=== PATIENT | male | born 1940 | race Caucasian/White ===

== ENCOUNTER → 2018-12-19 | Outpatient (CLI) | payer MEDICARE, BC ==
--- NOTE | 2018-12-19 13:20 | CT ---
EXAMINATION TYPE: CT brain wo con DATE OF EXAM: 12/19/2018 COMPARISON: None HISTORY: Frontal head injury 2 months ago. Follow up scan. CT DLP: 1059.7 mGycm Automated exposure control for dose reduction was used. CT brain departmental protocol. FINDINGS: There is no hemorrhage or hydrocephalus. Cortical atrophy is extensive. Cerebral vascular calcificati ons are present. Periventricular white matter shows low attenuation. Calvarium is intact. Extensive i nflammatory change includes the sphenoid sinus, ethmoid air cells, bilateral maxillary sinus and fron pilar sinus. Mastoids are well aerated. Possible mucus retention cyst or polyp within the left maxillar y sinus. No evident depressed skull fracture. 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 EXTENSIVE SINUS DISEASE. NO ACUTE ABN ORMALITIES EVIDENT.
== END | disposition home or self-care (01) ==
LOC: RADCTMAIN 12:40
PROVIDERS: ATTEND Internal Medicine
DX: G31.1 Senile degeneration of brain, not elsewhere classified (principal)
CPT/HCPCS: 70450

== ENCOUNTER → 2019-05-30 | Outpatient (CLI) | payer MEDICARE, BC ==
[2019-05-31 01:02] LABS: Protein, Total 6.3 g/dL (6.2-8.2)
[2019-05-31 10:32] LABS: Free Kappa Lt Chain Qnt, Serum 4.03 mg/dL (0.33-1.94)
[2019-05-31 12:40] LABS: Albumin 3.65 g/dL (3.80-4.90); Gamma Globulin 0.92 g/dL (0.70-1.50)
== END | disposition home or self-care (01) ==
LOC: LABWHC1 16:12
PROVIDERS: ATTEND Internal Medicine
DX: F03.90 Unspecified dementia, unspecified severity, without behavioral disturbance, psychotic disturbance, mood disturbance, and anxiety (principal); R60.9 Edema, unspecified
CPT/HCPCS: 36415; 83880; 83883; 84165; 84166; 84484

== ENCOUNTER 2019-09-08 18:06 | Emergency (ER) | payer MEDICARE, BC ==
[2019-09-08 18:17] VITALS: RESP 18; TEMP 98
--- NOTE | 2019-09-08 18:36 | ED ---
General Adult HPI - General Chief complaint: Fall Stated complaint: Fall Time Seen by Provider: 09/08/19 18:12 Source: EMS Mode of arrival: EMS Limitations: altered mental status - History of Present Illness Initial comments: 79-year-old male patient presents to the emergency department today for evaluation after stressing a fall. Patient resides at a [facility] facility. Staff states it was a witnessed fall from standing. Patient did not lose consciousness with the injury. They sent him in for evaluation of a possible injuries. Patient currently denies any pain. He is moving all extremities without difficulty. He denies any use of anticoagulants. Patient denies any headache, neck pain, back pain, chest pain, shortness of breath, dizziness, weakness, abdominal pain, nausea, vomiting, or difficulties with bowel movements or urination. - Related Data Home Medications Medication Instructions Recorded Confirmed Apixaban [Eliquis] 5 mg PO BID 04/01/16 04/10/16 Atorvastatin [Lipitor] 20 mg PO DAILY 04/01/16 04/10/16 Cyanocobalamin [Vitamin B-12] 2,500 mcg PO DAILY 04/01/16 04/10/16 Donepezil HCl [Aricept] 10 mg PO QAM 04/01/16 04/10/16 Glucosam/Jim-Msm1/C/Onesimo/Bosw 1 tab PO DAILY 04/01/16 04/10/16 [Glucosamine-Chondroitin Tablet] Multivitamins, Thera [Multivitamin] 1 tab PO DAILY 04/01/16 04/10/16 Sertraline HCl [Zoloft] 50 mg PO QAM 04/01/16 04/10/16 Previous Rx's Medication Instructions Recorded HYDROcodone/APAP 5-325MG [[place] 1 - 2 each PO Q4-6H PRN #90 tab 04/13/16 5-325] Sennosides-Docusate Sodium 1 tab PO BID #60 tablet 04/13/16 [Senokot-S] Allergies Allergy/AdvReac Type Severity Reaction Status Date / Time No Known Allergies Allergy Verified 04/01/16 08:35 Review of Systems ROS Statement: Those systems with pertinent positive or pertinent negative responses have been documented in the HPI. ROS Other: All systems not noted in ROS Statement are negative. Past Medical History Past Medical History: Atrial Fibrillation, Osteoarthritis (OA) Additional Past Medical History / Comment(s): states "mild cognitive impairment-memory impairment",cva 1996,hx bleeding ulcer History of Any Multi-Drug Resistant Organisms: None Reported Past Surgical History: Joint Replacement, Tonsillectomy Additional Past Surgical History / Comment(s): lt knee replaced Past Anesthesia/Blood Transfusion Reactions: No Reported Reaction Additional Past Anesthesia/Blood Transfusion Reaction / Comment(s): no hx blood transfusion Past Psychological History: Depression Smoking Status: Former smoker - Past Family History Mother Additional Family Medical History / Comment(s): Alheimer's Father Family Medical History: CVA/TIA, Myocardial Infarction ([place]) Brother(s) Additional Family Medical History / Comment(s): Parkinson's General Exam Limitations: altered mental status General appearance: alert, in no apparent distress, other (This is a well- developed, well-nourished is a well-developed, well-nourished adult male patient in no acute distress. Vital signs upon presentation are temperature 98.0F, pulse 76, respirations 18, blood pressure 135/91, pulse ox 100% on room air.) Eye exam: Present: normal appearance, PERRL, EOMI. Absent: scleral icterus, conjunctival injection, periorbital swelling ENT exam: Present: normal exam, normal oropharynx, mucous membranes moist Neck exam: Present: normal inspection, full ROM, other (Nontender, no step-off, no deformity to firm midline palpation of the posterior cervical spine. Full range of motion without pain or limitation.) Respiratory exam: Present: normal lung sounds bilaterally. Absent: respiratory distress, wheezes, rales, rhonchi, stridor Cardiovascular Exam: Present: regular rate, normal rhythm, normal heart sounds. Absent: systolic murmur, diastolic murmur, rubs, gallop, clicks GI/Abdominal exam: Present: soft, normal bowel sounds. Absent: distended, tenderness, guarding, rebound, rigid Extremities exam: Present: normal inspection, full ROM, normal capillary refill. Absent: tenderness, pedal edema, joint swelling, calf tenderness Back exam: Present: normal inspection, other (Nontender, no step-off, no deformity to firm midline palpation of the thoracic and lumbar vertebrae. Full range of motion without pain or limitation.). Absent: vertebral tenderness Neurological exam: Present: alert, CN II-XII intact. Absent: oriented X3 (Oriented 1) Psychiatric exam: Present: normal affect, normal mood Skin exam: Present: warm, dry, intact, normal color. Absent: rash Course Vital Signs 09/08/19 18:13 Temperature 98 F Pulse Rate 76 Respiratory 18 Rate Blood Pressure 135/91 O2 Sat by Pulse 100 Oximetry Medical Decision Making - Medical Decision Making 79-year-old male patient presents to the emergency department today for evaluation after splinting a fall. Physical examination is unremarkable. Patient does not appear to have any injuries. He denies any pain. He is moving all extremities and neck without any pain or limitation. is present, she also does not believe he has any injuries. He'll be discharged back to his facility. They're instructed to follow-up with the primary care physician for recheck in 1-2 days. Return parameters discussed in detail. verbalizes understanding and agrees with this plan. Disposition Clinical Impression: Fall Disposition: HOME SELF-CARE Condition: Good Instructions (If sedation given, give patient instructions): Fall Prevention for Older Adults (ED) Additional Instructions: Give Tylenol for any complaints of discomfort. Return to the emergency department immediately for any new, worsening, or concerning symptoms. The [facility] physician for recheck in 1-2 days. Is patient prescribed a controlled substance at d/c from ED?: No Referrals: Tim Gonzalez MD [Primary Care Provider] - 1-2 days Time of Disposition: 18:36
[2019-09-08 18:56] VITALS: BP 132/74; PULSE 71
== END 2019-09-08 18:54 | disposition home or self-care (01) ==
LOC: EC 18:06
DX: Z04.3 Encounter for examination and observation following other accident (principal); I48.91 Unspecified atrial fibrillation; F32.9 Major depressive disorder, single episode, unspecified; M19.90 Unspecified osteoarthritis, unspecified site; Z79.01 Long term (current) use of anticoagulants; Z79.899 Other long term (current) drug therapy; Z87.891 Personal history of nicotine dependence; Z96.652 Presence of left artificial knee joint; Z86.73 Personal history of transient ischemic attack (TIA), and cerebral infarction without residual deficits
CPT/HCPCS: 99283

== ENCOUNTER 2020-02-20 21:21 | Emergency (ER) | payer MEDICARE, BC ==
--- NOTE | 2020-02-20 21:38 | ED ---
General Adult HPI - General Chief complaint: Fall Stated complaint: Fall Time Seen by Provider: 02/20/20 21:26 Source: patient Mode of arrival: EMS Limitations: language barrier, physical limitation - History of Present Illness Initial comments: Dictation was produced using [employer] dictation software. please excuse any grammatical, word or spelling errors. This patient was cared for during a federal and state declared state of emergency secondary to Covid 19 Chief Complaint: 79-year-old male past medical history of A. fib on blood t adelina presents after fall. History of Present Illness: Chin is a 79-year-old male who presents today after fall. Patient is transferred from chair to wheelchair when he lost balance. Patient fell landing onto his left side. Patient complaining of left-sided shoulder pain. Family member at bedside reports that patient's complaint of left shoulder pain. Patient is a poor historian due to chronic dementia. Patient denies any shortness of breath. No abdominal pain. No lower extremity pain. The ROS documented in this emergency department record has been reviewed and confirmed by me. Those systems with pertinent positive or negative responses have been documented in the HPI. All other systems are other negative and/or noncontributory. PHYSICAL EXAM: General Impression: Alert and oriented x3/4, not in acute distress HEENT: Normocephalic atraumatic, extra-ocular movements intact, pupils equal and reactive to light bilaterally, mucous membranes moist. Cardiovascular: Heart regular rate and rhythm Chest: Able to complete full sentences, no retractions, no tachypnea Abdomen: abdomen soft, non-tender, non-distended, no organomegaly Musculoskeletal: Pulses present and equal in all extremities, no peripheral edema Extremities: No gross deformities. He does have some tenderness to palpation over the left scapular region. Motor: no focal deficits noted Neurological: CN II-XII grossly intact, no focal motor or sensory deficits noted Skin: Intact with no visualized rashes Psych: Normal affect and mood ED course: 79-year-old male presents after fall. Signs upon arrival are within acceptable limits. No obvious signs of trauma. Patient's fall is likely mechanical. Patient is debilitated and requires a lot of assistance. Family member at bedside reports that patient has chronic debility. CT of the head, C- spine and face are unremarkable. Shoulder x-ray left shoulder and chest x-ray and pelvis x-ray are unremarkable. Patient reevaluated bedside stable medical condition. Patient denies pain. Patient has frequent movement of his left upper extremity. Family member at bedside. Patient clear for discharge. Return parameters discussed with patient and family member who were both in agreement. - Related Data Home Medications Medication Instructions Recorded Confirmed Apixaban [Eliquis] 5 mg PO BID@0830,1930 04/01/16 02/20/20 Atorvastatin [Lipitor] 20 mg PO DAILY@192904/01/16 02/20/20 Donepezil HCl [Aricept] 10 mg PO DAILY@192904/01/16 02/20/20 Acetaminophen [Tylenol Arthritis] 650 mg PO Q4H PRN 02/20/20 02/20/20 Metoprolol Succinate (ER) [Toprol 25 mg PO DAILY@0800 02/20/20 02/20/20 Xl] QUEtiapine [SEROquel] 25 mg PO BID@0830,192902/20/20 02/20/20 Sertraline HCl [Zoloft] 100 mg PO DAILY@82902/20/20 02/20/20 Turmeric Curcumin 1 cap PO DAILY@0802/20/20 02/20/20 Allergies Allergy/AdvReac Type Severity Reaction Status Date / Time No Known Allergies Allergy Verified 02/20/20 21:33 Review of Systems ROS Statement: Those systems with pertinent positive or pertinent negative responses have been documented in the HPI. ROS Other: All systems not noted in ROS Statement are negative. Past Medical History Past Medical History: Atrial Fibrillation, Dementia, Osteoarthritis (OA) Additional Past Medical History / Comment(s): states "mild cognitive impairment-memory impairment",cva 1996,hx bleeding ulcer History of Any Multi-Drug Resistant Organisms: None Reported Past Surgical History: Joint Replacement, Tonsillectomy Additional Past Surgical History / Comment(s): lt knee replaced Past Anesthesia/Blood Transfusion Reactions: No Reported Reaction Additional Past Anesthesia/Blood Transfusion Reaction / Comment(s): no hx blood transfusion Past Psychological History: Depression Past Alcohol Use History: None Reported Past Drug Use History: None Reported - Past Family History Mother Additional Family Medical History / Comment(s): Alheimer's Father Family Medical History: CVA/TIA, Myocardial Infarction ([place]) Brother(s) Additional Family Medical History / Comment(s): Parkinson's General Exam Limitations: language barrier, physical limitation Course Vital Signs 02/20/20 21:22 Temperature 98.3 F Pulse Rate 80 Respiratory 16 Rate Blood Pressure 125/88 O2 Sat by Pulse 95 Oximetry Disposition Clinical Impression: Fall Disposition: HOME SELF-CARE Condition: Good Instructions (If sedation given, give patient instructions): Fall Prevention for Older Adults (ED) Is patient prescribed a controlled substance at d/c from ED?: No Referrals: Tim Gonzalez MD [Primary Care Provider] - 1-2 days Time of Disposition: 22:23
--- NOTE | 2020-02-20 22:07 | XR ---
EXAMINATION TYPE: XR pelvis AP view DATE OF EXAM: 02/20/2020 COMPARISON: None HISTORY: Fall, pain TECHNIQUE: Pelvis is examined in a single frontal projection FINDINGS: Femoral heads articulate with the acetabulum. Symphysis pubis and sacroiliac joints are nor mal. No acute fractures are evident. IMPRESSION: 1. No acute osseous abnormality pelvis
--- NOTE | 2020-02-20 22:07 | XR ---
EXAMINATION TYPE: XR chest 1V portable DATE OF EXAM: 02/20/2020 COMPARISON: 04/13/2016 INDICATION: Fall, pain TECHNIQUE: Single frontal view of the chest is obtained. FINDINGS: The heart size is normal. The pulmonary vasculature is normal. The lungs are clear. No pneumothorax is evident. No displaced rib fractures are evident. IMPRESSION: 1. No acute pulmonary process.
--- NOTE | 2020-02-20 22:09 | XR ---
EXAMINATION TYPE: XR shoulder complete LT DATE OF EXAM: 02/20/2020 COMPARISON: None HISTORY: Fall, pain TECHNIQUE: Three-view left shoulder FINDINGS: Acromioclavicular junction is normal. The humeral head articulates with the glenoid. No acu te fractures are evident. Follow-up exam can be performed 7-10 days from acute trauma for continued pain. IMPRESSION: 1. No acute osseous abnormality left shoulder.
--- NOTE | 2020-02-20 22:12 | CT ---
EXAMINATION TYPE: CT brain paulaine wo con DATE OF EXAM: 02/20/2020 COMPARISON: 12/19/2018 HISTORY: fall CT DLP: combined DLP 1264.4 mGycm, Automated exposure control for dose reduction was used. CONTRAST: Patient injected with 0 mL of Isovue 370. CT of the brain is performed utilizing 3 mm thick sections through the posterior fossa and 3 mm thick sections through the remaining calvarium. Study is performed within 24 hours of arrival to the hospital. No abnormal hyperdensity is present to suggest an acute intracranial hemorrhage. No mass lesion is evident. Some minimal physiologic basal ganglion calcification is in the right basa l ganglion. No acute infarcts are evident. Periventricular white matter hypodensity is present, likely on the ba sis of chronic white matter ischemic changes. Ventricles and sulci are prominent for the patient age. There is opacification of the right sphenoid sinus. Remaining paranasal sinuses are clear. No acute fractures are evident. IMPRESSIONS: 1. Normal CT brain. CT cervical spine. COMPARISON: None CT of the cervical spine is performed in the axial plane at 2 mm thick sections. Reconstructed image s in the coronal, and sagittal plane are reviewed on the computer. No acute fractures are evident. Cervical kyphosis present centered at C5. Endplate spurring is present C3-4. Anterior vertebral body spurring is present C3 and C6. Facet hypertrophy is noted. There is loss of disc height through the cervical spine Vertebral body heights are preserved. No spinal canal stenosis is evident. Uncovertebral joint hypertrophy is contributing to bilateral foraminal stenosis C3-4 and C5-6. IMPRESSIONS: 1. Degenerative disc changes and uncovertebral joint hypertrophy. 2. Cervical kyphosis can be related to patient positioning or muscle spasm. 3. No acute osseous abnormality cervical spine
--- NOTE | 2020-02-20 22:17 | CT ---
EXAMINATION TYPE: CT facial bones wo con DATE OF EXAM: 02/20/2020 COMPARISON: None HISTORY: fall CT DLP: combined DLP 1264.4 mGycm CONTRAST: 0 mL of Isovue 370 The paranasal sinuses are examined in the axial plane at 2 mm thick sections. Reconstructed images i n the coronal plane were obtained. There is dental amalgam scatter artifact Mucosal thickening is within the right maxillary sinus. Retention cyst within the left maxillary sinu s. Left septal deviation is noted. There is mucosal thickening through ethmoid air cells. There is opacification of the posterior right sphenoid sinus. Left sphenoid sinus is clear. The frontal sinus es are clear. Nasal bones are intact. No septal fracture is evident. Right ostiomeatal unit is obstructed. Left ost iomeatal unit is patent. Orbital floors are intact. Temporomandibular junctions are normal. IMPRESSIONS: 1. No acute osseous abnormality facial bone CT. 2. Mucosal thickening and retention cysts scattered within the paranasal sinuses discussed above. Acu te sinusitis of the right sphenoid sinus should be considered.
[2020-02-20] MEDS ORDERED: LIDOCAINE 5% PATCH TOPICAL STA (22:20)
[2020-02-20 22:49] VITALS: BP 124/67; PULSE 91; RESP 18; TEMP 97.8
== END 2020-02-20 22:49 | disposition home or self-care (01) ==
LOC: EC 21:21
DX: Z04.3 Encounter for examination and observation following other accident (principal); F03.90 Unspecified dementia, unspecified severity, without behavioral disturbance, psychotic disturbance, mood disturbance, and anxiety; I48.91 Unspecified atrial fibrillation; F32.9 Major depressive disorder, single episode, unspecified; Z79.01 Long term (current) use of anticoagulants; Z79.899 Other long term (current) drug therapy; Z86.73 Personal history of transient ischemic attack (TIA), and cerebral infarction without residual deficits; Z96.652 Presence of left artificial knee joint
CPT/HCPCS: 70450; 70486; 71045; 72125; 72170; 99284

== ENCOUNTER 2020-08-13 13:44 | Inpatient (IN) | payer MEDICARE, BC ==
[2020-08-13] MEDS ORDERED: SODIUM CHLORIDE 0.9% 500 ML 500 ML IV STA (13:59)
[2020-08-13] MEDS ORDERED: SODIUM CHLORIDE 0.9% 1,000 ML IV STA (13:59)
--- NOTE | 2020-08-13 14:07 | ED ---
General Adult HPI - General Chief complaint: Recheck/Abnormal Lab/Rx Stated complaint: Covid + Time Seen by Provider: 08/13/20 13:44 Source: patient, EMS, RN notes reviewed Mode of arrival: EMS Limitations: no limitations - History of Present Illness Initial comments: This 80-year-old male history Lewy body dementia A. fib TIA who is brought in for evaluation after being tested positive for Covid 19 . His care facility. No reports of fevers chills nausea vomiting sweats cough or phlegm production the patient himself is a poor historian - Related Data Home Medications Medication Instructions Recorded Confirmed Atorvastatin [Lipitor] 20 mg PO HS 04/01/16 08/13/20 Donepezil HCl [Aricept] 10 mg PO HS 04/01/16 08/13/20 Acetaminophen [Tylenol Arthritis] 650 mg PO Q4H PRN 02/20/20 08/13/20 Metoprolol Succinate (ER) [Toprol 25 mg PO DAILY@0800 02/20/20 08/13/20 Xl] QUEtiapine [SEROquel] 25 mg PO BID@0830,1930 02/20/20 08/13/20 Sertraline HCl [Zoloft] 100 mg PO DAILY@0830 02/20/20 08/13/20 Turmeric Curcumin 1 cap PO DAILY@0830 02/20/20 08/13/20 Allergies Allergy/AdvReac Type Severity Reaction Status Date / Time No Known Allergies Allergy Verified 08/13/20 14:59 Review of Systems ROS Statement: Those systems with pertinent positive or pertinent negative responses have been documented in the HPI. ROS Other: All systems not noted in ROS Statement are negative. Limitations: ROS unobtainable due to patients medical condition Past Medical History Past Medical History: Atrial Fibrillation, CVA/TIA, Dementia, Osteoarthritis (OA) Additional Past Medical History / Comment(s): states "mild cognitive impairment-memory impairment",cva 1996,hx bleeding ulcer, difficulty walking and muscle weakness. lewy body dementia. History of Any Multi-Drug Resistant Organisms: None Reported Past Surgical History: Joint Replacement, Tonsillectomy Additional Past Surgical History / Comment(s): lt knee replaced Past Anesthesia/Blood Transfusion Reactions: No Reported Reaction Additional Past Anesthesia/Blood Transfusion Reaction / Comment(s): no hx blood transfusion Past Psychological History: Depression Smoking Status: Former smoker Past Alcohol Use History: None Reported Past Drug Use History: None Reported - Past Family History Mother Additional Family Medical History / Comment(s): Alheimer's Father Family Medical History: CVA/TIA, Myocardial Infarction ([place]) Brother(s) Additional Family Medical History / Comment(s): Parkinson's General Exam - General Exam Comments Initial Comments: This a well-developed well-nourished awake alert confused male Limitations: no limitations General appearance: alert, in no apparent distress Head exam: Present: atraumatic, normocephalic, normal inspection Eye exam: Present: normal appearance, PERRL, EOMI. Absent: scleral icterus, conjunctival injection, periorbital swelling ENT exam: Present: mucous membranes dry Neck exam: Present: normal inspection. Absent: tenderness, meningismus, lymph adenopathy Respiratory exam: Present: normal lung sounds bilaterally. Absent: respiratory distress, wheezes, rales, rhonchi, stridor Cardiovascular Exam: Present: regular rate, normal rhythm, normal heart sounds. Absent: systolic murmur, diastolic murmur, rubs, gallop, clicks GI/Abdominal exam: Present: soft, normal bowel sounds. Absent: distended, tenderness, guarding, rebound, rigid Extremities exam: Present: normal inspection, full ROM, normal capillary refill. Absent: tenderness, pedal edema, joint swelling, calf tenderness Back exam: Present: normal inspection Neurological exam: Present: alert, altered, CN II-XII intact Psychiatric exam: Present: normal affect, normal mood Skin exam: Present: warm, dry, intact, normal color. Absent: rash Course Vital Signs 08/13/20 08/13/20 13:45 16:52 Temperature 98.6 F 98.6 F Pulse Rate 64 67 Respiratory 18 16 Rate Blood Pressure 124/91 132/110 O2 Sat by Pulse 99 97 Oximetry EKG Findings - EKG Results: EKG: interpreted by ERMD (Referral is a rate of 58 QRS 86 QT since QTC 360/455 right superior axis deviation nonspecific septal undetermined age) Medical Decision Making - Medical Decision Making I did discuss findings with Dr. Oconnell patient will be admitted - Lab Data Result diagrams: 08/13/20 14:10 08/13/20 14:10 Lab Results 08/13/20 08/13/20 08/13/20 Range/Units 14:10 14:10 14:10 WBC 5.4 (3.8-10.6) k/uL RBC 4.64 (4.30-5.90) m/uL Hgb 14.1 (13.0-17.5) gm/dL Hct 41.3 (39.0-53.0) % MCV 89.1 (80.0-100.0) fL MCH 30.4 (25.0-35.0) pg MCHC 34.1 (31.0-37.0) g/dL RDW 14.8 (11.5-15.5) % Plt Count 138 L (150-450) k/uL MPV 7.3 Neutrophils % 64 % Lymphocytes % 15 % Monocytes % 13 % Eosinophils % 3 % Basophils % 3 % Neutrophils # 3.4 (1.3-7.7) k/uL Lymphocytes # 0.8 L (1.0-4.8) k/uL Monocytes # 0.7 (0-1.0) k/uL Eosinophils # 0.2 (0-0.7) k/uL Basophils # 0.1 (0-0.2) k/uL PT 11.0 (9.0-12.0) sec INR 1.0 (<1.2) APTT 23.6 (22.0-30.0) sec D-Dimer 1.50 H (<0.60) mg/L FEU Sodium 140 (137-145) mmol/L Potassium 4.2 (3.5-5.1) mmol/L Chloride 110 H (98-107) mmol/L Carbon Dioxide 22 (22-30) mmol/L Anion Gap 8 mmol/L BUN 14 (9-20) mg/dL Creatinine 0.85 (0.66-1.25) mg/dL Est GFR (CKD-EPI)AfAm >90 (>60 ml/min/1.73 sqM) Est GFR (CKD-EPI)NonAf 82 (>60 ml/min/1.73 sqM) Glucose 110 H (74-99) mg/dL Plasma Lactic Acid Ilya (0.7-2.0) mmol/L Calcium 8.7 (8.4-10.2) mg/dL Magnesium 1.8 (1.6-2.3) mg/dL Total Bilirubin 1.1 (0.2-1.3) mg/dL AST 32 (17-59) U/L ALT 18 (4-49) U/L Alkaline Phosphatase 186 H (38-126) U/L Creatine Kinase 69 (55-170) U/L Troponin I (0.000-0.034) ng/mL NT-Pro-B Natriuret Pep pg/mL Total Protein 7.1 (6.3-8.2) g/dL Albumin 3.8 (3.5-5.0) g/dL 08/13/20 08/13/20 08/13/20 Range/Units 14:10 14:10 14:10 WBC (3.8-10.6) k/uL RBC (4.30-5.90) m/uL Hgb (13.0-17.5) gm/dL Hct (39.0-53.0) % MCV (80.0-100.0) fL MCH (25.0-35.0) pg MCHC (31.0-37.0) g/dL RDW (11.5-15.5) % Plt Count (150-450) k/uL MPV Neutrophils % % Lymphocytes % % Monocytes % % Eosinophils % % Basophils % % Neutrophils # (1.3-7.7) k/uL Lymphocytes # (1.0-4.8) k/uL Monocytes # (0-1.0) k/uL Eosinophils # (0-0.7) k/uL Basophils # (0-0.2) k/uL PT (9.0-12.0) sec INR (<1.2) APTT (22.0-30.0) sec D-Dimer (<0.60) mg/L FEU Sodium (137-145) mmol/L Potassium (3.5-5.1) mmol/L Chloride (98-107) mmol/L Carbon Dioxide (22-30) mmol/L Anion Gap mmol/L BUN (9-20) mg/dL Creatinine (0.66-1.25) mg/dL Est GFR (CKD-EPI)AfAm (>60 ml/min/1.73 sqM) Est GFR (CKD-EPI)NonAf (>60 ml/min/1.73 sqM) Glucose (74-99) mg/dL Plasma Lactic Acid Ilya 1.5 (0.7-2.0) mmol/L Calcium (8.4-10.2) mg/dL Magnesium (1.6-2.3) mg/dL Total Bilirubin (0.2-1.3) mg/dL AST (17-59) U/L ALT (4-49) U/L Alkaline Phosphatase (38-126) U/L Creatine Kinase (55-170) U/L Troponin I 0.015 (0.000-0.034) ng/mL NT-Pro-B Natriuret Pep 3240 pg/mL Total Protein (6.3-8.2) g/dL Albumin (3.5-5.0) g/dL - Radiology Data Radiology results: report reviewed (Imaging reviewed no definite evidence of ascending complete report), image reviewed Disposition Clinical Impression: COVID-19, CHF (congestive heart failure), Elevated d-dimer Disposition: ADMITTED IP TO THIS [facility] Condition: Fair Referrals: Tim Gonzalez MD [Primary Care Provider] - 1-2 days
[2020-08-13 14:31] LABS: ALT 18 U/L (4-49); AST 32 U/L (17-59); African American GFR (CKD) >90 (>60 ml/min/1.73 sqM); Albumin 3.8 g/dL (3.5-5.0); Alkaline Phosphatase 186 U/L (38-126); Anion Gap 8 mmol/L; Blood Urea Nitrogen 14 mg/dL (9-20); Calcium 8.7 mg/dL (8.4-10.2); Carbon Dioxide 22 mmol/L (22-30); Chloride 110 mmol/L (98-107); Creatine Kinase 69 U/L (55-170); Glucose 110 mg/dL (74-99); Magnesium 1.8 mg/dL (1.6-2.3); Non-African American GFR(CKD) 82 (>60 ml/min/1.73 sqM); Potassium 4.2 mmol/L (3.5-5.1); Sodium 140 mmol/L (137-145); Total Bilirubin 1.1 mg/dL (0.2-1.3); Total Protein 7.1 g/dL (6.3-8.2)
[2020-08-13 14:36] LABS: Partial Thromboplastin Time 23.6 sec (22.0-30.0)
[2020-08-13 14:48] LABS: D-Dimer 1.5 mg/L FEU (<0.60)
[2020-08-13 14:54] LABS: Basophils # (A) 0.1 k/uL (0-0.2); Basophils % (A) 3 %; Eosinophils # (A) 0.2 k/uL (0-0.7); Eosinophils % (A) 3 %; HCT 41.3 % (39.0-53.0); HGB 14.1 gm/dL (13.0-17.5); Lymphocytes # (A) 0.8 k/uL (1.0-4.8); Lymphocytes % (A) 15 %; MCH 30.4 pg (25.0-35.0); MCHC 34.1 g/dL (31.0-37.0); MCV 89.1 fL (80.0-100.0); Mean Platelet Volume 7.3; Monocytes # (A) 0.7 k/uL (0-1.0); Monocytes % (A) 13 %; Neutrophils # (A) 3.4 k/uL (1.3-7.7); Neutrophils % (A) 64 %; Platelet Count 138 k/uL (150-450); RBC 4.64 m/uL (4.30-5.90); RDW 14.8 % (11.5-15.5); WBC 5.4 k/uL (3.8-10.6)
--- NOTE | 2020-08-13 15:04 | XR ---
EXAMINATION TYPE: XR chest 2V DATE OF EXAM: 08/13/2020 COMPARISON: 02/20/2020 HISTORY: 80-year-old male shortness of breath, difficulty breathing TECHNIQUE: AP and lateral views FINDINGS: Heart borderline enlarged. Interstitial increased density with peribronchial cuffing. No nerissa consol idation or pleural effusion. IMPRESSION: Cardiomegaly. Interstitial change. Correlate for possible bronchitis, asthma, or mild pulmonary vascu lar congestion.
--- NOTE | 2020-08-13 16:44 | CT ---
EXAMINATION TYPE: CT angio chest DATE OF EXAM: 08/13/2020 COMPARISON: Radiograph same day HISTORY: 80-year-old male shortness of breath, PE suspected, positive d-dimer TECHNIQUE: Contiguous axial scanning of the chest performed with IV Contrast, patient injected with 1 00 mL of Isovue 370. Coronal/sagittal MIP reconstructions performed. CT DLP: 481. mGycm Automated exposure control for dose reduction was used. FINDINGS: Heart is borderline enlarged without pericardial effusion. No flattening of the interventricular sept um. 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 Some scattered mildly enlarged right paratracheal lymph nodes measuring up to 1.2 cm. Possible right hilar lymph node measuring up to 2.9 x 1.7 cm should be reassessed at follow-up. Satisfactory opacification the pulmonary arterial system but with diffuse breathing motion. Many of t he subsegmental and smaller arterial branches are nondiagnostic. No definite embolus to the segmental level. Trace effusions. Septal lines mild hazy groundglass. Mild central interstitial thickening. Visualized upper abdomen shows no gross abnormality. Bones: DISH within the mid to lower thoracic spine. IMPRESSION: 1. BREATHING MOTION ARTIFACT. SUBSEGMENTAL AND SMALLER ARTERIAL BRANCHES ARE NONDIAGNOSTIC. NO DEFINI TE EMBOLUS TO THE SEGMENTAL LEVEL. 2. BORDERLINE HEART SIZE, TRACE EFFUSIONS, SOME SEPTAL LINES, AND MILD DIFFUSE GROUNDGLASS. CORRELATE FOR FLUID OVERLOAD STATE WITH MILD CHF AND PULMONARY VASCULAR CONGESTION. 3. POSSIBLE ENLARGED 2.9 X 1.7 CM RIGHT HILAR LYMPH NODE. 3 MONTH FOLLOW-UP CT TO REASSESS. 4. MILDLY ENLARGED RIGHT PARATRACHEAL LYMPH NODES MEASURING UP TO 1.2 CM PROBABLY REACTIVE. THESE JOANN ULD ALSO BE REASSESSED AT THE PATIENT'S FOLLOW-UP. 5. MILD ANEURYSM ASCENDING AORTA 4.0 CM.
[2020-08-13 17:46] LABS: C Reactive Protein 26.9 mg/L (<10.0)
[2020-08-14 03:21] LABS: Ferritin 337.5 ng/mL (22.0-322.0)
[2020-08-14] MEDS ORDERED: ACETAMINOPHEN TAB 325 MG TAB PO PRN (10:45)
[2020-08-14] MEDS: CHOLECALCIFEROL 1,000 UNIT TAB PO SCH (11:36)
[2020-08-14] MEDS: ENOXAPARIN 40 MG/0.4 ML SYRINGE SQ SCH (11:36)
[2020-08-14] MEDS: ASCORBIC ACID 500 MG TAB PO SCH ×2 (11:36→20:14)
[2020-08-14] MEDS: ZINC SULFATE 220 MG CAP PO SCH (11:36)
--- NOTE | 2020-08-14 13:30 | P.CNPUL ---
History of Present Illness Consult date: 08/14/20 Requesting physician: Austin Dumont Reason for consult: hypoxemia Chief complaint: Acute hypoxic respiratory failure related to COVID 19 pneumonia History of present illness: 80-year-old white male patient with past medical history of Lewy body dementia, chronic A. fib, previous history of CVA/TIA, osteoarthritis, depression, former smoker, cognitive impairment and memory impairment, patient is a resident of a assisted living [facility] in [place], and apparently tested positive for COVID. he is a very poor historian, not able to provide any history, and most of the history was obtained from the chart and some from the nursing staff. He apparently did not have any symptoms, no fever, no chills, no nausea vomiting, no cough, no shortness of breath. His chest x-ray showed interstitial changes, he has maintained his O2 sat between 93-99% on room air, patient has been afebrile, he is breathing comfortably, no cough, no congestion. Laboratory data showed a white blood cell count of 5.4, hemoglobin of 14.1, white count is 1:30 percent of 0.8, d-dimer was 1.5, chloride was 110 the rest of electrolytes and renal profile were unremarkable, lactic acid was 1.5, t roponin was 0.015, proBNP was 3240, and influenza screen was negative, RSV was negative, and COVID test was positive component calcitonin was negative at 0.06. He is resting comfortably in bed, does not appear to be in any acute distress, and as mentioned above. Patient is extremely poor historian. CTA chest showed breathing motion artifact, no definite embolus to the segmental level, trace eff usions, mild diffuse groundglass, possibly enlarged 2.9 x 1.7 cm right hilar lymph node mildly enlarged right peritracheal lymph node possibly reactive. Mild aneurysm of the ascending aorta measuring 4.0 cm. Review of Systems All systems: negative Constitutional: Denies chills, Denies fever Eyes: denies blurred vision, denies pain Ears, nose, mouth and throat: Denies headache, Denies sore throat Cardiovascular: Denies chest pain, Denies shortness of breath Respiratory: Denies cough Gastrointestinal: Denies abdominal pain, Denies diarrhea, Denies nausea, Denies vomiting Musculoskeletal: Denies myalgias Integumentary: Denies pruritus, Denies rash Neurological: Denies numbness, Denies weakness Psychiatric: Denies anxiety, Denies depression Endocrine: Denies fatigue, Denies weight change Past Medical History Past Medical History: Atrial Fibrillation, CVA/TIA, Dementia, Osteoarthritis (OA) Additional Past Medical History / Comment(s): states "mild cognitive impairment-memory impairment",cva 1996,hx bleeding ulcer, difficulty walking and muscle weakness. lewy body dementia. History of Any Multi-Drug Resistant Organisms: None Reported Past Surgical History: Joint Replacement, Tonsillectomy Additional Past Surgical History / Comment(s): lt knee replaced Past Anesthesia/Blood Transfusion Reactions: No Reported Reaction Additional Past Anesthesia/Blood Transfusion Reaction / Comment(s): no hx blood transfusion Past Psychological History: Depression Smoking Status: Former smoker Past Alcohol Use History: None Reported Additional Past Alcohol Use History / Comment(s): quit smoking ,smoked approx 25yrs-1 ppd Past Drug Use History: None Reported - Past Family History Mother Additional Family Medical History / Comment(s): Trent's Father Family Medical History: CVA/TIA, Myocardial Infarction ([place]) Brother(s) Additional Family Medical History / Comment(s): Parkinson's Medications and Allergies Home Medications Medication Instructions Recorded Confirmed Type Atorvastatin [Lipitor] 20 mg PO HS 04/01/16 08/13/20 History Donepezil HCl [Aricept] 10 mg PO HS 04/01/16 08/13/20 History Acetaminophen [Tylenol Arthritis] 650 mg PO Q4H PRN 02/20/20 08/13/20 History Metoprolol Succinate (ER) [Toprol 25 mg PO DAILY@0800 02/20/20 08/13/20 History Xl] QUEtiapine [SEROquel] 25 mg PO BID@0830,1930 02/20/20 08/13/20 History Sertraline HCl [Zoloft] 100 mg PO DAILY@30 02/20/20 08/13/20 History Turmeric Curcumin 1 cap PO DAILY@0802/20/20 08/13/20 History Allergies Allergy/AdvReac Type Severity Reaction Status Date / Time No Known Allergies Allergy Verified 08/13/20 14:59 Physical Exam Vitals: Vital Signs Temp Pulse Pulse Resp BP BP Pulse Ox 08/14/20 10:38 97.9 F 67 18 158/71 97 08/14/20 05:04 97.8 F 65 18 144/65 93 L 08/13/20 21:27 97.0 F L 65 16 144/93 97 08/13/20 18:03 60 18 168/94 99 08/13/20 16:52 98.6 F 67 16 132/110 97 08/13/20 13:45 98.6 F 64 18 124/91 99 Intake and Output 08/13/20 08/14/20 08/14/20 22:59 06:59 14:59 Other: # Bowel Movements 1 Weight 86.183 kg GENERAL EXAM: Alert, oriented only to self, disoriented to place and time, 80-y ear-old white male, on room air, with a pulse ox of 97% of the patient is confused, and this is his baseline, his history of cognitive and memory impairment related to his advanced Lewy body dementia, comfortable in no apparent distress. HEAD: Normocephalic/atraumatic. EYES: Normal reaction of pupils, equal size. Conjunctiva pink, sclera white. NOSE: Clear with pink turbinates. THROAT: No erythema or exudates. NECK: No masses, no JVD, no thyroid enlargement, no adenopathy. CHEST: No chest wall deformity. Symmetrical expansion. LUNGS: Equal air entry with no crackles, wheeze, rhonchi or dullness. CVS: Regular rate and rhythm, normal S1 and S2, no gallops, no murmurs, no rubs ABDOMEN: Soft, nontender. No hepatosplenomegaly, normal bowel sounds, no guarding or rigidity. EXTREMITIES: No clubbing, no edema, no cyanosis, 2+ pulses and upper and lower extremities. MUSCULOSKELETAL: Muscle strength and tone normal. SPINE: No scoliosis or deformity SKIN: No rashes CENTRAL NERVOUS SYSTEM: Alert and oriented -3. No focal deficits, tone is normal in all 4 extremities. PSYCHIATRIC: Alert and oriented -3. Appropriate affect. Intact judgment and insight. Results - Laboratory Findings CBC and BMP: 08/13/20 14:10 08/13/20 14:10 PT/INR, D-dimer PT 11.0 sec (9.0-12.0) 08/13/20 14:10 INR 1.0 (<1.2) 08/13/20 14:10 D-Dimer 1.50 mg/L FEU (<0.60) H 08/13/20 14:10 Abnormal lab findings: Abnormal Labs 08/13/20 08/13/20 08/13/20 14:10 14:10 14:10 Plt Count 138 L Lymphocytes # 0.8 L D-Dimer 1.50 H Chloride 110 H Glucose 110 H Ferritin Alkaline Phosphatase 186 H C-Reactive Protein SARS-CoV-2 (PCR) 08/13/20 08/13/20 14:31 17:17 Plt Count Lymphocytes # D-Dimer Chloride Glucose Ferritin 337.5 H Alkaline Phosphatase C-Reactive Protein 26.9 H SARS-CoV-2 (PCR) Detected A - Diagnostic Findings Chest x-ray: report reviewed, image reviewed CT scan - chest: report reviewed, image reviewed Assessment and Plan Plan: Assessment: #1. Acute COVID 19 pneumonitis, with no evidence of acute hypoxic respiratory failure, patient is maintaining O2 saturations above 93% on room air. Patient is a poor historian, however from the chart it appears that he did not have any significant symptoms, and was sent in from his [facility] home because of positive COVID 19 test and the facility cannot accommodate COVID 19 positive patients #2. Elevated d-dimer, related to above, at 1.5 on admission, with no evidence of central pulmonary embolism on the CTA chest #3. History of advanced Lewy body dementia #4. History of atrial fibrillation, not on any chronic anticoagulation #5. History of CVA/TIA #6. Osteoarthritis #7. History of GI bleed #8. Difficulty with mobility and muscle weakness #9. Depression #10. Former smoker Plan: Continue current medical treatment including vitamins, prophylactic anticoagulation, patient is not complaining of any symptoms, he is on room air, his been afebrile, vital signs have been stable, from pulmonary perspective he doesn't really need steroids, unless there is worsening of his status noted and patient starts requiring oxygen. Currently social work is following and discharge planning is in progress for placement to F facility that accepts COVID 19 positive patients. Apparently his facility where she came from an [place] cannot accommodate COVID 19 positive patients, that was probably the main reason patient was admitted to the hospital I performed a history & physical examination of the patient and discussed their management with my nurse practitioner, Angelika Crain. I reviewed the nurse practitioner's note and agree with the documented findings and plan of care. Lung sounds are positive for diminished breath sounds. The findings and the impression was discussed with the patient. I attest to the documentation by the nurse practitioner. Time with Patient: Greater than 30
[2020-08-14] MEDS: QUEtiapine 25 MG TAB PO SCH (19:37)
[2020-08-14] MEDS ORDERED: ATORVASTATIN 20 MG TAB PO SCH (21:00)
[2020-08-14] MEDS ORDERED: DONEPEZIL 10 MG TAB PO SCH (21:00)
--- NOTE | 2020-08-14 23:04 | P.HPIM ---
History of Present Illness H&P Date: 08/14/20 Chief Complaint: COVID 19 positive History of presenting complaint: This is a pleasant 80-year-old patient, follows the Dr. Tim Gonzalez. Chronic stable medical conditions include atrial fibrillation, dementia, osteoarthritis, history of bleeding ulcer. Iftikhar body dementia and depression. Patient was sent in because patient was diagnosed with COVID 19. Patient denies any cough no shortness of breath. No fever no chills. Appetite is okay. Denies any change of taste or smell. Review of systems: GEN.: Tired EYES: None HEENT: None NECK: None RESPIRATORY: None CARDIOVASCULAR: None GASTROINTESTINAL: None GENITOURINARY: None MUSCULOSKELETAL: Some joint pains LYMPHATICS: None HEMATOLOGICAL: None PSYCHIATRY: Forgetful NEUROLOGICAL: None. Past medical history to include: Atrial fibrillation, osteoarthritis, bleeding ulcer, difficulty walking, E body dementia, depression Social history: Patient smoked for about 25 years 1 pack a day stopped in 1989. No alcohol. Physical examination: VITAL SIGNS: 98.6, 64, 18, 124 with 91, 99% room air GENERAL: BMI 27.3, in bed, comfortable. EYES: Pupils equal. Conjunctiva normal. HEENT: External appearance of nose and ears normal, oral cavity grossly normal. NECK: JVD not raised; masses not palpable. HEART: First and second heart sounds are normal; no edema. LUNGS: Respiratory rate normal; decreased breath sounds. ABDOMEN: Soft, nontender, liver spleen not palpable, no masses palpable. PSYCH: Able to answer some questionsl. NEUROLOGICAL: Cranial nerves grossly intact; no facial asymmetry, power and sensation grossly intact. LYMPHATICS: No lymph nodes palpable in the axilla and neck INVESTIGATIONS, reviewed in the clinical context: White count 5.4 hemoglobin 14.1 platelets 138 potassium 4.2 creatinine 0.85 D-dimer 1.5 CRP 26.9 Influenza type A type B PCR not detected Coronavirus PCR-detected EKG tracing personally reviewed by me-atrial fibrillation with a rate of 58 Chest x-ray film personally reviewed by me-scattered infiltrates Computed tomography scan of the chest-breathing and motion artifact. No obvious embolism. Some mild diffuse groundglass changes. Aneurysm ascending aorta 4 cm Assessment: -COVID 19 pneumonia. Asymptomatic. Patient's pulse ox on room air is 99%. No indication for steroids. -lewy-body dementia -Persistent atrial fibrillation rate controlled -Primary osteoarthritis -Chronic gait dysfunction -Depression not otherwise specified -Hyperlipidemia Plan: Home medications resumed. Patient is placed on supplemental medications including vitamin C vitamin D sink and subcu Lovenox for DVT prophylaxis. No indication for steroids. Past Medical History Past Medical History: Atrial Fibrillation, CVA/TIA, Dementia, Osteoarthritis (OA) Additional Past Medical History / Comment(s): states "mild cognitive impairment-memory impairment",cva 1996,hx bleeding ulcer, difficulty walking and muscle weakness. lewy body dementia. History of Any Multi-Drug Resistant Organisms: None Reported Past Surgical History: Joint Replacement, Tonsillectomy Additional Past Surgical History / Comment(s): lt knee replaced Past Anesthesia/Blood Transfusion Reactions: No Reported Reaction Additional Past Anesthesia/Blood Transfusion Reaction / Comment(s): no hx blood transfusion Past Psychological History: Depression Smoking Status: Former smoker Past Alcohol Use History: None Reported Additional Past Alcohol Use History / Comment(s): quit smoking ,smoked approx 25yrs-1 ppd Past Drug Use History: None Reported - Past Family History Mother Additional Family Medical History / Comment(s): Alheimer's Father Family Medical History: CVA/TIA, Myocardial Infarction ([place]) Brother(s) Additional Family Medical History / Comment(s): Parkinson's Medications and Allergies Home Medications Medication Instructions Recorded Confirmed Type Atorvastatin [Lipitor] 20 mg PO HS 04/01/16 08/13/20 History Donepezil HCl [Aricept] 10 mg PO HS 04/01/16 08/13/20 History Acetaminophen [Tylenol Arthritis] 650 mg PO Q4H PRN 02/20/20 08/13/20 History Metoprolol Succinate (ER) [Toprol 25 mg PO DAILY@0800 02/20/20 08/13/20 History Xl] QUEtiapine [SEROquel] 25 mg PO BID@0830,1930 02/20/20 08/13/20 History Sertraline HCl [Zoloft] 100 mg PO DAILY@0830 02/20/20 08/13/20 History Turmeric Curcumin 1 cap PO DAILY@0830 02/20/20 08/13/20 History Allergies Allergy/AdvReac Type Severity Reaction Status Date / Time No Known Allergies Allergy Verified 08/13/20 14:59 Physical Exam Vitals: Vital Signs Temp Pulse Pulse Resp BP BP Pulse Ox 08/14/20 05:04 97.8 F 65 18 144/65 93 L 08/13/20 21:27 97.0 F L 65 16 144/93 97 08/13/20 18:03 60 18 168/94 99 08/13/20 16:52 98.6 F 67 16 132/110 97 08/13/20 13:45 98.6 F 64 18 124/91 99 Intake and Output 08/13/20 08/14/20 08/14/20 22:59 06:59 14:59 Other: # Bowel Movements 1 Weight 86.183 kg Results CBC & Chem 7: 08/13/20 14:10 08/13/20 14:10 Labs: Abnormal Lab Results - Last 24 Hours (Table) 08/13/20 08/13/20 08/13/20 Range/Units 14:10 14:10 14:10 Plt Count 138 L (150-450) k/uL Lymphocytes # 0.8 L (1.0-4.8) k/uL D-Dimer 1.50 H (<0.60) mg/L FEU Chloride 110 H (98-107) mmol/L Glucose 110 H (74-99) mg/dL Ferritin (22.0-322.0) ng/mL Alkaline Phosphatase 186 H (38-126) U/L C-Reactive Protein (<10.0) mg/L SARS-CoV-2 (PCR) (Not Detectd) 08/13/20 08/13/20 Range/Units 14:31 17:17 Plt Count (150-450) k/uL Lymphocytes # (1.0-4.8) k/uL D-Dimer (<0.60) mg/L FEU Chloride (98-107) mmol/L Glucose (74-99) mg/dL Ferritin 337.5 H (22.0-322.0) ng/mL Alkaline Phosphatase (38-126) U/L C-Reactive Protein 26.9 H (<10.0) mg/L SARS-CoV-2 (PCR) Detected A (Not Detectd) Thrombosis Risk Factor Assmnt - Choose All That Apply Each Risk Factor Represents 3 Points: Age 75 years or older Thrombosis Risk Factor Assessment Total Risk Factor Score: 3 Thrombosis Risk Factor Assessment Level: Moderate Risk
[2020-08-15] MEDS ORDERED: METOPROLOL SUCCINATE (ER) 25 MG TAB.ER.24H PO SCH (08:00)
[2020-08-15] MEDS: CHOLECALCIFEROL 1,000 UNIT TAB PO SCH (08:13)
[2020-08-15] MEDS: ZINC SULFATE 220 MG CAP PO SCH (08:13)
[2020-08-15] MEDS: QUEtiapine 25 MG TAB PO SCH (08:14)
[2020-08-15] MEDS: ENOXAPARIN 40 MG/0.4 ML SYRINGE SQ SCH (08:14)
[2020-08-15] MEDS: ASCORBIC ACID 500 MG TAB PO SCH (08:14)
[2020-08-15] MEDS ORDERED: TURMERIC CURCUMIN PO SCH (08:30)
[2020-08-15] MEDS ORDERED: SERTRALINE 100 MG TAB PO SCH (08:30)
[2020-08-15 10:56] VITALS: BP 130/71; PULSE 93; RESP 17; TEMP 97.5
--- NOTE | 2020-08-15 13:06 | P.PN ---
Subjective Progress Note Date: 08/15/20 Principal diagnosis: COVID 19 infection 80-year-old white male patient with past medical history of Lewy body dementia, chronic A. fib, previous history of CVA/TIA, osteoarthritis, depression, former smoker, cognitive impairment and memory impairment, patient is a resident of a assisted living facility [facility] in [place], and apparently tested positive for COVID. he is a very poor historian, not able to provide any history, and most of the history was obtained from the chart and some from the nursing staff. He apparently did not have any symptoms, no fever, no chills, no nausea vomiting, no cough, no shortness of breath. His chest x-ray showed interstitial changes, he has maintained his O2 sat between 93-99% on room air, patient has been afebrile, he is breathing comfortably, no cough, no congestion. Laboratory data showed a white blood cell count of 5.4, hemoglobin of 14.1, white count is 1:30 percent of 0.8, d-dimer was 1.5, chloride was 110 the rest of electrolytes and renal profile were unremarkable, lactic acid was 1.5, troponin was 0.015, proBNP was 3240, and influenza screen was negative, RSV was negative, and COVID test was positive component calcitonin was negative at 0.06. He is resting comfortably in bed, does not appear to be in any acute distress, and as mentioned above. Patient is extremely poor historian. CTA chest showed breathing motion artifact, no definite embolus to the segmental level, trace effusions, mild diffuse groundglass, possibly enlarged 2.9 x 1.7 cm right hilar lymph node mildly enlarged right peritracheal lymph node possibly reactive. Mild aneurysm of the ascending aorta measuring 4.0 cm. On 08/15/2020 patient seen in follow-up on medical floor, sitting comfortably in bed, does not appear to be in any acute distress, breathing comfortably, he is currently on room air with pulse ox of 96%, hemodynamically stable, his had no fever or chills, his inflammatory markers were no significantly increased, LDH was within normal limits at 556, CRP was only mildly elevated at 26.9, pro calcitonin came back negative at 0.06, ferritin level was 337, d-dimer was 1.5. He is receiving prophylactic Lovenox, he is on vitamin C, zinc. Social work is following, and [facility] is reviewing the patient's chart Objective - Vital Signs Vital signs: Vital Signs Temp 97.5 F L 08/15/20 10:55 Pulse 93 08/15/20 10:55 Resp 17 08/15/20 10:55 BP 130/71 08/15/20 10:55 Pulse Ox 96 08/15/20 10:55 Intake & Output 08/14/20 08/15/20 08/15/20 18:59 06:59 18:59 Intake Total 700 600 Balance 700 600 Intake: Oral 700 600 Other: Voiding Method Incontinent Diaper Incontinent # Voids 3 3 # Bowel Movements 2 1 - Exam GENERAL EXAM: Alert, oriented only to self, disoriented to place and time, 80-year-old white male, on room air, with a pulse ox of 97% of the patient is confused, and this is his baseline, his history of cognitive and memory impairment related to his advanced Lewy body dementia, comfortable in no apparent distress. HEAD: Normocephalic/atraumatic. EYES: Normal reaction of pupils, equal size. Conjunctiva pink, sclera white. NOSE: Clear with pink turbinates. THROAT: No erythema or exudates. NECK: No masses, no JVD, no thyroid enlargement, no adenopathy. CHEST: No chest wall deformity. Symmetrical expansion. LUNGS: Equal air entry with no crackles, wheeze, rhonchi or dullness. CVS: Regular rate and rhythm, normal S1 and S2, no gallops, no murmurs, no rubs ABDOMEN: Soft, nontender. No hepatosplenomegaly, normal bowel sounds, no guarding or rigidity. EXTREMITIES: No clubbing, no edema, no cyanosis, 2+ pulses and upper and lower extremities. MUSCULOSKELETAL: Muscle strength and tone normal. SPINE: No scoliosis or deformity SKIN: No rashes CENTRAL NERVOUS SYSTEM: Alert and oriented -3. No focal deficits, tone is normal in all 4 extremities. PSYCHIATRIC: Alert and oriented -3. Appropriate affect. Intact judgment and insight. - Labs CBC & Chem 7: 08/13/20 14:10 08/13/20 14:10 Labs: Microbiology - Last 24 Hours (Table) 08/13/20 15:00 Blood Culture - Preliminary Blood No Growth after 24 hours 08/13/20 15:15 Blood Culture - Preliminary Blood No Growth after 24 hours Assessment and Plan Plan: Assessment: #1. Acute COVID 19 pneumonitis, with no evidence of acute hypoxic respiratory failure, patient is maintaining O2 saturations above 93% on room air. Patient is a poor historian, however from the chart it appears that he did not have any significant symptoms, and was sent in from his [facility] home because of positive COVID 19 test and the facility cannot accommodate COVID 19 positive patients #2. Elevated d-dimer, related to above, at 1.5 on admission, with no evidence of central pulmonary embolism on the CTA chest #3. History of advanced Lewy body dementia #4. History of atrial fibrillation, not on any chronic anticoagulation #5. History of CVA/TIA #6. Osteoarthritis #7. History of GI bleed #8. Difficulty with mobility and muscle weakness #9. Depression #10. Former smoker Plan: Continue treatment, continue prophylactic anticoagulation, continue the vitamins, no need for steroids. Patient remains stable from pulmonary perspective, and is just awaiting placement to the [facility], social work is following and Mark is currently reviewing the patient's chart and awaiting PT/OT evaluation. I performed a history & physical examination of the patient and discussed their management with my nurse practitioner, Angelika Crain. I reviewed the nurse practitioner's note and agree with the documented findings and plan of care. Lung sounds are positive for diminished breath sounds. The findings and the impression was discussed with the patient. I attest to the documentation by the nurse practitioner. Time with Patient: Less than 30
--- NOTE | 2020-08-15 15:09 | P.DS ---
Providers Date of admission: 08/13/20 18:04 Expected date of discharge: 08/15/20 Attending physician: Ervin Oconnell Consults: 08/13/20 17:03 Consult Physician Stat Consulting Provider: Austin Taylor Reason/Comments: covid 19 Do you want consulting provider notified?: Yes Primary care physician: [facility] Course: Chief Complaint: COVID 19 positive History of presenting complaint: This is a pleasant 80-year-old patient, follows the Dr. Tim Gonzalez. Chronic stable medical conditions include atrial fibrillation, dementia, osteoarthritis, history of bleeding ulcer. Iftikhar body dementia and depression. Patient was sent in because patient was diagnosed with COVID 19. Patient denies any cough no shortness of breath. No fever no chills. Appetite is okay. Denies any change of taste or smell. Patient remains asymptomatic. Comfortable. Oral intake fair. No indication for steroids. Consultation: Dr. Carranza from pulmonary Past medical history to include: Atrial fibrillation, osteoarthritis, bleeding ulcer, difficulty walking, E body dementia, depression Social history: Patient smoked for about 25 years 1 pack a day stopped in 1989. No alcohol. Physical examination: VITAL SIGNS: 97.5, 93, 17, 130/71, 96% room air GENERAL: BMI 27.3, in bed, comfortable. EYES: Pupils equal. Conjunctiva normal. HEENT: External appearance of nose and ears normal, oral cavity grossly normal. NECK: JVD not raised; masses not palpable. HEART: First and second heart sounds are normal; no edema. LUNGS: Respiratory rate normal; decreased breath sounds. ABDOMEN: Soft, nontender, liver spleen not palpable, no masses palpable. PSYCH: Able to answer some questionsl. INVESTIGATIONS, reviewed in the clinical context: White count 5.4 hemoglobin 14.1 platelets 138 potassium 4.2 creatinine 0.85 D-dimer 1.5 CRP 26.9 Influenza type A type B PCR not detected Coronavirus PCR-detected EKG tracing personally reviewed by me-atrial fibrillation with a rate of 58 Chest x-ray film personally reviewed by me-scattered infiltrates Computed tomography scan of the chest-breathing and motion artifact. No obvious embolism. Some mild diffuse groundglass changes. Aneurysm ascending aorta 4 cm Assessment: -COVID 19 pneumonia. Asymptomatic. Patient's pulse ox on room air is 96%. No indication for steroids. -lewy-body dementia -Persistent atrial fibrillation rate controlled -Primary osteoarthritis -Chronic gait dysfunction -Depression not otherwise specified -Hyperlipidemia [facility] Patient Condition at Discharge: Stable Plan - Discharge Summary New Discharge Prescriptions: No Action Donepezil HCl [Aricept] 10 mg PO HS Atorvastatin [Lipitor] 20 mg PO HS Metoprolol Succinate (ER) [Toprol Xl] 25 mg PO DAILY@0800 Acetaminophen [Tylenol Arthritis] 650 mg PO Q4H PRN PRN Reason: Pain Turmeric Curcumin 1 cap PO DAILY@0830 QUEtiapine [SEROquel] 25 mg PO BID@829,1929 Sertraline HCl [Zoloft] 100 mg PO DAILY@829 Discharge Medication List Atorvastatin [Lipitor] 20 mg PO HS 04/01/16 [History] Donepezil HCl [Aricept] 10 mg PO HS 04/01/16 [History] Acetaminophen [Tylenol Arthritis] 650 mg PO Q4H PRN 02/20/20 [History] Metoprolol Succinate (ER) [Toprol Xl] 25 mg PO DAILY@0800 02/20/20 [History] QUEtiapine [SEROquel] 25 mg PO BID@0830,19302/20/20 [History] Sertraline HCl [Zoloft] 100 mg PO DAILY@82902/20/20 [History] Turmeric Curcumin 1 cap PO DAILY@82902/20/20 [History] Follow up Appointment(s)/Referral(s): Tim Gonzalez MD [Primary Care Provider] - 1-2 days
== END 2020-08-15 17:11 | DRG 177 ==
LOC: EC 13:44 → 6NMEDSUR 18:04
PROVIDERS: ADMIT Hospitalist; ATTEND Hospitalist
DX: U07.1 COVID-19 (principal); J12.82 Pneumonia due to coronavirus disease 2019; I48.19 Other persistent atrial fibrillation; G31.83 Neurocognitive disorder with Lewy bodies; F32.9 Major depressive disorder, single episode, unspecified; E78.5 Hyperlipidemia, unspecified; F02.80 Dementia in other diseases classified elsewhere, unspecified severity, without behavioral disturbance, psychotic disturbance, mood disturbance, and anxiety; I71.2 Thoracic aortic aneurysm, without rupture; Z96.652 Presence of left artificial knee joint; M19.91 Primary osteoarthritis, unspecified site; M62.81 Muscle weakness (generalized); Z79.899 Other long term (current) drug therapy; Z87.891 Personal history of nicotine dependence; Z86.73 Personal history of transient ischemic attack (TIA), and cerebral infarction without residual deficits; Z82.49 Family history of ischemic heart disease and other diseases of the circulatory system; Z82.0 Family history of epilepsy and other diseases of the nervous system; Z90.89 Acquired absence of other organs
CPT/HCPCS: 36415; 71046; 71275; 80053; 82550; 82728; 83605; 83615; 83735; 83880; 84145; 84484; 85025; 85379; 85610; 85730; 86140; 87040; 87636; 93005; 96360; 96361; 99285

== ENCOUNTER → 2020-09-20 | Outpatient (CLI) | payer MEDICARE, BC ==
[2020-09-21 00:18] LABS: Basophils # (A) 0.09 X 10*3/uL (0.00-0.10); Basophils % (A) 1.1 %; Eosinophils % (A) 7.6 %; HCT 48.1 % (39.6-50.0); HGB 15.9 g/dL (13.0-17.0); Lymphocytes # (A) 1.37 X 10*3/uL (0.90-5.00); Lymphocytes % (A) 17.4 %; MCH 29.8 pg (27.0-32.0); MCHC 33.1 g/dL (32.0-37.0); MCV 90.1 fL (80.0-97.0); Mean Platelet Volume 10.8 fL (9.5-12.2); Monocytes # (A) 1.02 X 10*3/uL (0.20-1.00); Neutrophils # (A) 4.76 X 10*3/uL (1.80-7.70); Neutrophils % (A) 60.6 %; Platelet Count 247 X 10*3/uL (140-440); RBC 5.34 X 10*6/uL (4.40-5.60); RDW 14.7 % (11.5-14.5); WBC 7.86 X 10*3/uL (4.50-10.00)
[2020-09-21 04:16] LABS: African American GFR (CKD) 72.6 (60.0-200.0); Albumin 4.5 g/dL (3.80-4.90); Albumin/Globulin Ratio 1.61 (1.60-3.17); Anion Gap 12.3 mmol/L (4.00-12.00); BUN/Creat Ratio 19.09 Ratio (12.00-20.00); Calcium 9.5 mg/dL (8.7-10.3); Carbon Dioxide 21.7 mmol/L (21.6-31.8); Globulin 2.8 g/dL (1.6-3.3); Non-African American GFR(CKD) 62.6 (60.0-200.0); Potassium 3.9 mmol/L (3.5-5.5); Total Bilirubin 0.8 mg/dL (0.2-1.2); Total Protein 7.3 g/dL (6.2-8.2)
== END | disposition home or self-care (01) ==
LOC: LABWHC1 14:33
PROVIDERS: ATTEND Internal Medicine
DX: E72.20 Disorder of urea cycle metabolism, unspecified (principal); G40.909 Epilepsy, unspecified, not intractable, without status epilepticus
CPT/HCPCS: 36415; 80053; 80177; 82140; 85025

== ENCOUNTER → 2020-10-23 | Outpatient (CLI) | payer MEDICARE, BC ==
--- NOTE | 2020-10-23 11:51 | US ---
EXAMINATION TYPE: US liver DATE OF EXAM: 10/23/2020 COMPARISON: NONE CLINICAL HISTORY: R17 unspecified jaundice. EXAM MEASUREMENTS: Liver Length: 13.7 cm Gallbladder Wall: 0.3 cm CBD: 0.4 cm Right Kidney: 9.3 x 4.7 x 5.7 cm Extremely difficult and limited study due to exam done with patient sitting up in his wheelchair Pancreas: obscured Liver: visualized portions appear heterogeneous Gallbladder: visualized portions appear wnl Evidence for sonographic Anderson's sign: no CBD: visualized portions appear wnl Right Kidney: visualized portions appear wnl IMPRESSION: 1. Moderate fatty infiltration of the liver. Biliary dilatation is not identified.
== END ==
LOC: RADUSWWP 10:49
PROVIDERS: ATTEND Internal Medicine
DX: K76.0 Fatty (change of) liver, not elsewhere classified (principal)
CPT/HCPCS: 76705